=== PATIENT | female | born 1955 | race Caucasian/White ===

== ENCOUNTER 2020-12-28 11:20 | Inpatient (IN) | payer OTHER ==
--- OUTSIDE RECORDS SUMMARY | 2020-12-28 11:24 | XMS REPORT | Continuity of Care Document ---
:1955 Author Organization [facility] t Address [address] [place] [address] Care Team Providers Name Role Phone Robert Primary Care Physician SPRING Attending Clinician Unavailable Spring RUTH Attending Clinician Adams CASTELLON Attending Clinician Unavailable Rey VU, W. Attending Clinician Adamaris Swift MD Attending Clinician Adams Castellon MD Attending Clinician ADAMARIS SWIFT Attending Clinician Unavailable ADAMARIS SWIFT Admitting Clinician Unavailable Payers Payer Name Policy Type Policy Number Effective Date Expiration Date S césar [facility] MEDIC[facility] [id number] 2020 [facility] 00:00:00 [facility]ZZTR[facility]-CARE [id number] 2020 MEDICARE 00:00:00 [facility] OPEN ACCESS [id number] HMO/POS/EPO/PPO - AETNA UHC MEDICAREUHC [id number] 2020 [facility] MEDICARE 00:00:00 [facility] [id number] Problems Condition Condition Condition Status Onset Resolution Last Treating Co mments Source Name Details Category Date Date Treatment Clinician Date Malignant Malignant Problem Active 2018-05 [place] tumor of Tumor of 2-10 da breast Breast [facility]: [facility] DCIS DCIS Disease Active 2017-[address] [facility]ductal 06[facility]02 [facility] - carcinoma carcinoma 00:00: Medi destiny in situ) in situ) 00 Center Mammograph Mammograph Problem Active 2017- M [place] y abnormal y Abnormal 8-14 da 00:00: [facility] Allergies, Adverse Reactions, Alerts This patient has no known allergies or adverse reactions. Family History Family Member Diagnosis Comments Start Date Stop Date Source Natural brother Heart disease [facility] Natural daughter Diabetes [facility] Natural father [facility] Natural mother Heart disease [facility] Social History Social Habit Start Date Stop Date Quantity Comments Source History [facility] - Alcohol Std Drinks Medica l Center History [facility] - Alcohol Binge Medical Rao ter Sex Assigned At [facility] Tobacco use and 2018-04-03 2018-04-03 Never used [facility] kes - exposure 00:00:00 00:00:00 [facility] Alcohol intake 2018-04-03 2018-04-03 [facility]00 non-drinker of Medical Ce nter alcohol (finding) History [facility] 2018-03-27 2018-03-27 [facility] Smoking Status Start Date Stop Date Source Never smoker [facility] edical [place] Medications Ordered Filled Start Stop Current Ordering Indication Dosage Frequency Signature Comments Components Source Medication Medication Date Date Medication? Clinician (SIG) Name Name meloxicam 2020-0 2021- No 15mg QD Take 1 Metho di (Mobic) 15 05-18 tablet (15 st mg tablet 00:00: 05:59 mg total) Ho spita 00 :00 by mouth l daily. multivitami 2017-05 Yes 1{tbl} QD Take [address] n per 06-03 tablet by [facility] - tablet 12:00: mouth Medical 08 daily. Center glucosamine 2017-05 Yes 1{tbl} QD Take [address] -chondroiti 06-03 tablet by Zoë es - n 500-400 12:00: mouth Medical mg tablet 08 daily. [place] cholecalcif 2017-05 Yes QD Take by [facility]3] ben, 06-03 mouth [facility] - vitamin D3, 12:00: daily. Medi destiny (VITAMIN D3 08 Center ORAL) FERROUS 2017-05 Yes 65mg Q.5D Take [address] SULFATE 1-28 by mouth 2 [facility] - ORAL 12:00: (two) Medical 08 times Center daily. docusate 2017-05 Yes 100mg Q.[id number] Take [address] sodium 1- [id number] mg by [facility] - (COLACE) 12:00: 3W mouth 3 Medica l 100 MG 08 (three) Center capsule times a week. calcium 2017-05 Yes Q.5D Take by [facility] carbonate/v 06-03 mouth 2 [facility] - itamin D3 12:00: (two) Medical (CALCIUM 07 times Center 500 + D daily . ORAL) aspirin 81 aspirin 81 No 1 Q1D aspirin 81 [place] mg mg mg da tablet,abimael tablet,abimael tablet,del [facility] yed release yed release ayed a l Take 1 Take 1 release Health tablet tablet Take 1 Outreac every day every day tablet h by oral by oral every day Prog dilan route. route. by oral route. Calcium 600 Calcium 600 No Calcium [place] with with 600 with da Vitamin D3 Vitamin D3 Vitamin D3 [facility] Outre[facility] h Program exemestane exemestane No exemestane [place] 25 mg 25 mg 25 mg da tablet tablet tablet [facility] Outre[facility] Program Glucosamine Glucosamine No Glucosamin [place] da [facility] Outre[facility] Program iron iron No iron [place] [facility] Program meloxicam meloxicam No meloxicam [place] 15 mg 15 mg 15 mg da tablet tablet tablet [facility] Outre[facility] Program valacyclovi valacyclovi No valacyclov [place] r 1 gram r 1 gram ir 1 gram da tablet TAKE tablet TAKE tablet [facility] 2 TABLETS 2 TABLETS TAKE 2 al BY MOUTH BY MOUTH TABLETS BY H ealth TWICE A TWICE A MOUTH Outreac DAY; FOR DAY; FOR TWICE A h ONE DAY FOR ONE DAY FOR DAY; FOR Program ATTACKS ATTACKS ONE DAY FOR ATTACKS Vital Signs Vital Name Observation Time Observation Value Comments Source BP Diastolic 2020-06-11 00:00:00 89 mm[Hg] Lynette cunningham [facility] Out[facility] Height 2020-06-11 00:00:00 67 [in_i] [facility] Program BMI (Body Mass 2020-06-11 00:00:00 26 kg/m2 [place] [employer] [facility] benefits specialist [facility] Index) Health Outreach Program BP Systolic 2020-06-11 00:00:00 143 mm[Hg] [place] [facility] Body Weight 2020-06-11 00:00:00 166 [lb_av] [place] [facility] BP Diastolic 2019-10-27 00:00:00 88 mm[Hg] [place] [facility] Height 2019-10-27 00:00:00 67 [in_i] [place] [facility] BMI (Body Mass 2019-10-27 00:00:00 25.7 kg/m2 [facility] [employer] [facility] specialist [facility] Index) Health Outreach Program BP Systolic 2019-10-27 00:00:00 156 mm[Hg] [place] [facility] Body Weight 2019-10-27 00:00:00 164 [lb_av] [place] [facility] BP Diastolic 2019-09-20 00:00:00 78 mm[Hg] [place] [facility] Height 2019-09-20 00:00:00 67 [in_i] [place] [facility] BMI (Body Mass 2019-09-20 00:00:00 26 kg/m2 [facility] [employer] [facility] [employer] [facility] Index) [facility] Outreach Program BP Systolic 2019-09-20 00:00:00 128 mm[Hg] [place] [facility] Body Weight 2019-09-20 00:00:00 166 [lb_av] [place] [facility] BP Diastolic 2019-04-15 00:00:00 82 mm[Hg] [place] [facility] Height 2019-04-15 00:00:00 67 [in_i] [place] [facility] BMI (Body Mass 2019-04-15 00:00:00 26.3 kg/m2 [facility] [employer] [facility] Index) Health Outreach Program BP Systolic 2019-04-15 00:00:00 146 mm[Hg] [place] [facility] Body Weight 2019-04-15 00:00:00 168 [lb_av] [place] [facility] Body height 2020-05-18 19:15:00 170.2 cm [facility] Body weight 2020-05-18 19:15:00 72.576 kg [facility] BMI 2020-05-18 19:15:00 25.06 kg/m2 [facility] Procedures Procedure Date / Time Performed Performing [facility], AXIAL 2020-06-11 00:00:00 [place] [facility] XR KNEE 4+ VW BILATERAL 2020-05-18 19:25:51 Peter Le [facility] unlisted imaging order 2019-10-27 00:00:00 [place] [facility] Reduction Mammoplasty 2018-03-07 00:00:00 [facility] [employer] [facility] [employer] [facility] Plan of Care Planned Activity Planned Date Details Comments Source Diagnostic Test 2020-06-11 cytology report, thin [place] Pending 00:00:00 prep, smear or [facility] scraping, cervical or Outrea ch Program vaginal [code = cytology report, thin prep, smear or scraping, cervical or vaginal] Diagnostic Test 2020-06-11 CBC w/ auto diff [place] Pending 00:00:00 [code = CBC w/ auto [facility] diff] Outreach Progra m Diagnostic Test 2020-06-11 CMP, serum or plasma [place] [facility] Pending 00:00:00 [code = CMP, serum or [facility] plasma] Outreach Progra m Diagnostic Test 2020-06-11 TSH + free T4, serum [place] [facility] Pending 00:00:00 [code = TSH + free [facility] T4, serum] Outreach Progra m Diagnostic Test 2020-06-11 lipid panel, serum [facility] [employer] [facility] [employer] [facility] Pending 00:00:00 [code = lipid panel, [facility] serum] Outreach Progra m Future Scheduled 2020-05-[address] [facility] - Test 00:00:00 (12+) [code = [facility] DEPRESSION SCREENING (12+)] Future Scheduled 2020-01-[address] [facility] - Test 00:00:00 (#1) [code = Medical Center INFLUENZA VACCINE (#1)] Future Scheduled 2019 PNEUMOCOCCAL 65+ Y[facility] - Test 00:00:00 (1 of 1 - Medical Center [id number] PCV13) [code = PNEUMOCOCCAL 65+ YRS (1 of 1 - [id number] PCV13)] Future Scheduled [address] [facility] - Test 00:00:00 (procedure) [code = Medical Center 08091793] Future Scheduled [address] [facility] - Test 00:00:00 [facility] cervix (procedure) [code = 649648668] Future Scheduled [address] [facility] - Test 00:00:00 malignant [facility] breast (procedure) [code = 683435898] Future Scheduled [address] [facility] - Test 00:00:00 malignant [facility] colon (procedure) [code = 166612225] Future Scheduled COVID-19 [facility]ACCINE (1) [facility] [code = COVID-19 VACCINE (1)] Future Scheduled [facility] (procedure) [code = 801200303] Future Scheduled BREAST CANCER [facility] Test SCREENING [code = BREAST CANCER SCREENING] Future Scheduled [facility]OSCOPY [facility] [code = COLONOSCOPY SCREENING] Future Scheduled SHINGLES VACCINES [facility] Test (#1) [code = SHINGLES VACCINES (#1)] Future Scheduled 65+ [facility] VACCINE (1 of 1 - PPSV23) [code = 65+ PNEUMOCOCCAL VACCINE (1 of 1 - PPSV23)] Future Scheduled INFLUENZA VACCINE [facility] Test [code = INFLUENZA VACCINE] Encounters Start End Encounter Admission Attending Care Care Encounter Source Date/Time Date/Time Type Type Clinicians Facility Department ID 2020-11-16 2020-11-16 Outpatient ROBE LONDONO [facility] [id number] [facility] 10:20:45 14:10:11 BEKA [facility] Medicin e 2020-11-16 2020-11-16 Office CORA LondonoJonna [id number] 10:20:45 14:10:11 Visit eBka Vazquez 350.1.13.21 0.2.7.2.686 [id number] 2020-11-16 2020-11-16 Outpatient [facility] [id number] [facility] 08:38:35 14:06:55 Colleg e of Medicin e 2020-11-16 2020-11-16 Outpatient [facility] [id number] [facility] 08:39:03 08:39:03 Colleg [facility] of Medicin e 2020-06-11 2020-06-11 Marci WALKERADONAY [place] - [id number] M gen 00:00:00 00:00:00 Adamaris Khanh Blackwell, [facility] SHEET METAL FOREMAN: 111 HOP - ADONAY al Leah F N, ELECTRICAL SUPERINTENDENT [facility], Outrea c [facility] [phone] Judy yoo , Ph. 2020-05-20 2020-05-20 Outpatient CANDE, [facility] [id number] [facility] 11:13:18 11:41:51 ERLINDA Colleg e of Medicin e 2020-05-18 2020-05-18 Office Maff[place], 1.2.840.1 [id number] Methodi 12:54:00 13:43:32 Visit Peter Cuevas 84177.1.[address] 3.430.2.7 Hospit a .3.377026 l .8 2020-05-18 2020-05-18 [facility] [id number] [address] [place] [address] 00:00:00 00:00:[address] 2020-05-18 2020-05-18 Travel 1.2.840.1 [id number] [id number] [facility] 00:00:00 00:00:[address] 3.430.2.7 0.2.7.3.698 Ho spita .3.534055 084.8 l .8 2020-05-18 2020-05-18 [facility] [id number] [place] [address] 00:00:00 00:00:[address] 2020-05-10 2020-05-10 Travel 1.2.840.1 1.2.830.406 [id number] [facility] 00:00:00 00:00:[address] 3.430.2.7 0.2.7.3.698 Ho spita .3.063116 084.8 l .8 2019-11-17 2019-11-17 Office Jamison, [facility] 1.2.840.114 [id number] 11:02:54 14:13:28 Visit Brii Vazquez 350.1.13.21 0.2.7.2.686 [id number] 2019-11-17 2019-11-[address] [facility] 1.2.840.114 [id number] 10:35:44 10:55:44 Visit Erlinda Vazquez 350.1.13.21 0.2.7.2.686 [id number] 2019-10-27 2019-10-27 Berto ESTES [place] - [id number] M atagor 00:00:00 00:00:00 Cas Millan MD: [facility] [address] [facility] [address] h , Ph. Program 2019-09-20 2019-09-20 Janny [place]ES [place] - [id number] [place] 00:00:00 00:00:00 Khanh Rivera SHEET METAL FOREMAN: 1700 [facility] [address] h , Ph. Program 2019-06-09 2019-06-[address] [facility] 1.2.840.114 [id number] 12:14:51 15:04:43 Visit Brii Vazquez 350.1.13.21 0.2.7.2.686 [id number] 2019-06-09 2019-06-09 Office Cande, [facility] 1.2.840.114 [id number] 10:50:16 12:15:19 Visit Erlinda R Taylor 350.1.13.21 0.2.7.2.686 [id number] 500 2019-04-15 2019-04-15 Marci ESTES [place] - [id number] M atagor 00:00:00 00:00:00 Adamaris Blackwell, [facility] SHEET METAL FOREMAN: 111 [facility] tiffanie Gagnon, ELECTRICAL SUPERINTENDENT [facility], [facility] [place] [phone] [facility] am , Ph. 2018-12-02 2018-12-02 Office ALICIA Castellon 1.2.840.114 [id number] 11:37:17 13:55:54 Visit Erlinda Lamas AMBULATOR 350.1.13.21 Y 0.2.7.2.686 [id number] 2018-12-02 2018-12-02 Office ALICIA Swift 1.2.840.114 [id number] 11:15:00 11:30:00 Visit Brii Ann AMBULATOR 350.1.13.21 Y 0.2.7.2.686 [id number] Results Test Description Test Time Test Comments Results Result Comments Source Urinalysis macro (dipstick) panel - Urine 2019-10-27 10:34:0 0 Test Item Value Reference Range Interpretation Comme nts Leukocytes (test code = Leukocytes) NEG Nitrite (test code = Nitrite) NEG Urobilinogen (test code = Urobilinogen) 2.0 Protein (test code = Protein) NEG pH (test code = pH) 6.5 Blood (test code = Blood) NEG Specific Hatley (test code = Specific Hatley) 1.020 Ketone (test code = Ketone) 15MG/ML Bilirubin (test code = Bilirubin) NEG Glucose (test code = Glucose) NEG Appearance (test code = Appearance) NEG [facility] occult blood, [id number] 14:40:18 Test Item Value Reference Range Interpretation Comments Occult Blood (test code = Occult negative Blood) [facility] occult blood, [id number] 14:40:18 Test Item Value Reference Range Interpretation Comments Occult Blood (test code = Occult negative Blood) [facility] Outreach ProgramTISSUE [id number] 16:00:00 Surgical Pathology Report Case: [id number] Authorizing Provider: Brii Swift MD Collected: 04/02/2018 1234 Ordering Location: [facility] Received: 04/02/2018 1307 SERVICES Pathologist: Sera Cobian MD Specimens: A) - Breast, Left, LEFT BREAST LUMPECTOMY WITH STITCHES,SHORT=SUPERIOR LONG=LATERAL,WHITE STITCH DEEP B) - Breast, Left, LEFT BREAST ADDITIONAL LATERAL MARGIN ,STITCH AT TRUE MARGIN C) - Breast, Left, LEFT BREAST ANTERIOR SUPERIOR MARGIN ,STITCH AT TRUE MARGIN D) - Breast, Left, LEFT MEDIAL BREAST TISSUE E) - Breast, Left, LEFT LATERAL BREAST TISSUE F) - Breast, Left, LEFT BREAST TISSUE SUPERIOR TO THE NIPPLE G) - Breast, Right, RIGHT LATERAL BREAST TISSUE H) - Breast, Right, RIGHTMEDIAL BREAST TISSUE I) - Breast, Right, RIGHT BREAST TISSUE A. BREAST, LEFT, NEEDLE GUIDED LUMPECTOMY: -MICROINVASIVE CARCINOMA - SEVERAL FOCI - GREATEST MICROSCOPIC DIMENSION: 0.7 MM - NUCLEAR GRADE: 2/3 BY SBR CRITERIA - SURGICAL MARGINS: NEGATIVE - ANTERIOR MARGIN AT 2 MM - ALL OTHER MARGINS AT MORE THAN 10 MM - DUCTAL CARCINOMA IN SITU (DCIS) - THREE RESIDUAL FOCI - MICROSCOPIC DIMENSION OF FOCI: 25, 1.9 AND 1 MM - NUCLEAR GRADE: 2/3 BY SBR CRITERIA - GROWTH PATTERN: SOLID - CENTRAL NECROSIS IDENTIFIED - SURGICAL MARGINS NEGATIVE - ANTERIOR MARGIN AT 1 MM - ALL OTHER MARGINS MORETHAN 10 MM - BIOPSY SITE CHANGES PRESENT ASSOCIATED WITH CLIP - MICROCALCIFICATIONS ASSOCIATED WITH D CISB. BREAST, LEFT, NEW LATERAL MARGIN, RE-EXCISION: - COLUMNAR CELL HYPERPLASIA - COLUMNAR CELL CHANGES - USUAL TYPE DUCTAL HYPERPLASIAC. BREAST, LEFT, NEW ANTERIOR/SUPERIOR MARGIN, RE-EXCISION: - HISTOLOGICALLY UNREMARKABLE BREAST TISSUED. BREAST, LEFT, MEDIAL TISSUE EXCISION: - HISTOLOGICALLY UNREMARKABLE BREAST TISSUEE. BREAST, LEFT, LATERAL TISSUE EXCISION: - HISTOLOGICALLY UNREMARKABLE BREAST TISSUE F. BREAST, LEFT, SUPERIOR TO THE NIPPLE TISSUE EXCISION: - HISTOLOGICALLY UNREMARKABLE BREASTTISSUEG. BREAST, RIGHT, LATERAL TISSUE EXCISION: - HISTOLOGICALLY UNREMARKABLE BREAST TISSUE - SKINAND DERMIS, NO PATHOLOGIC CHANGESH. BREAST, RIGHT, MEDIAL TISSUE EXCISION: - HISTOLOGICALLY UNREMARKABLE BREAST TISSUE - SKIN AND DERMIS, NO PATHOLOGIC CHANGESI. BREAST, RIGHT, TISSUE EXCISION: - HISTOLOGICALLY UNREMARKABLE BREAST TISSUE Signing Pathologist Direct Phone Line: [phone] signed by Sera Cobian MD on 04/05/2018 at 4:00 PMThere is a large area of biopsy site changes measuring 18 x 10 mm. Adjacent to this area are three residual foci of DCIS surrounded by foci of microinvasive carcinoma as highlighted by positive terrazas-cytokeratin immunostain and negative p63 and heavy chain myosin immunostains. The tumor staging is based on the previous biopsy specimen revi ewed in this laboratory ([id number]) and the present specimen. INVASIVE CARCINOMA OF THE BREAST (Breast Invasive - All Specimens)SPECIMEN Procedure: Excision (less than total mastectomy) Specimen Laterality: Left TUMOR Histologic Type: Micro-invasive carcinoma Glandular (Acinar) /Tubular Differentiation: Only microinvasion present (not graded) Nuclear Pleomorphism: Score 2 Mitotic Rate: Only microinvasion present (not graded) Overall Grade: Only microinvasion present (not graded) Tumor Size: Microinvasion only (<= 1 mm) Ductal Carcinoma In Situ (DCIS): Present Size (Extent) of DCIS: Estimated size of DCIS greatest dimension in Millimeters (mm) is at least: 13 Millimeters (mm) Architectural Patterns: Solid Nuclear Grade: Grade II (intermediate) Necrosis: Present, central (expansive "comedo" necrosis) Tumor Extent: Accessory Findings: Lymphovascular Invasion: Not identified Microcalci fications: Present in DCIS Treatment Effect: No known presurgical therapy MARGINS Invasive Carcinoma Margins: Uninvolved by invasive carcinoma Distance from Closest Margin in Millimeters (mm): Cannot be determined: Anterior margin re-excised, probably more than 6 mm Closest Margin: Anterior DCIS Margins: Uninvolved by DCIS Distance of DCIS from Closest Margin in Millimeters (mm): Cannot be determined: Anterior margin re-excised, probably more than 6 mm Closest Margin: Anterior LYMPH NODES Regional Lymph Nodes: No lymph nodes submitted or found PATHOLOGIC STAGE CLASSIFICATION (pTNM, AJCC 8th Edition) TNM Descriptors: Not applicable Primary Tumor (Invasive Carcinoma) (pT): pT1mi Regional Lymph Nodes (pN): Category (pN): pNX A. 74187, 08583, 45326, 80945 X2B. 20925D. 20545I. 23509U. 49502W. 98178Z. 36617Q. 60279X. 85427Dpqlarnoq neoplasm of left female breast, ductal carcinoma in situ of left breastA. Left breast lumpectomy. B. Left breast additional lateral margin. C. Left breast anterior superior margin. D. Left medial breast. E. Left lateral breast. F. Left breast tissue superior to the nipple. G. Right lateral breast tissue. H. Right medial breast tissue. I. Right breast tissue A. Received fresh, for intraop erative consultation and labeled with the patient's information and "left breast lumpectomy with stitches, short superior, long lateral, white deep" is a 32.75 gram, 1.7 x 5.2 x 8 cm lumpectomy specimen. The specimen is serially sectioned into 7 slices from medial to lateral. There is a vasquez-red hemorrhagic and irregular biopsy site measuring 0.9 x 1.1 x 1.0 cm in slices 5-7. The M clip is identified in slice number 6. The biopsy site is 0.3 cm from the superior margin, 0.6 cm from the inferior margin, 1.8 cm from medial margin, 0.6 cm from lateral margin, 3.0 cm from the posterior margin, and 0.2cm from the anterior margin. The uninvolved breast tissue is 95% adipose tissue and 5% fibrous tissue . The specimen is submitted entirely for microscopic examination.Ink Code: Blue superior, yellow anterior, black posterior, and red inferior.Section code: A1- A4, slice 1, medial margin, superficial to deep, A5-A8, slice 2, superficial to deep, A9-A14, slice 3, superficial to deep (A13 and A14 are bisected), A15, slice 4, superficial, A16, slice 4, superficial superior, A17-A18, slice 4, superficialinferior, A19, slice 4, superior, A20, slice 4, inferior, A21-22, slice 4, superior, A23, slice 4, inferior, A24, slice 4 deep next to margin, A25, slice 4 deep, A26, slice 5, superior superficial withbiopsy site, A27, slice 5, inferior superficial, A28, slice 5, superior, A29, slice 5, inferior, A30, slice 5, superior deep, A31, slice 5, inferior deep, A32-A33, slice 6, superior superficial with clip, A34-35, slice 6, inferior superficial, A36-A37, slice 6, remaining from superficial to deep, A38-A42, slice 7, lateral margin, superficial to deep.The following specimens are received in formalin labeled with the patient's information:Specimen B: Labeled "left breast additional lateral margin" consists of an 8 gm segment of adipose tissue measuring 5 x 2 x 1 cm. There is a black suture on one surface designating the new lateral margin. The new margin is inked green. The specimen is serially sectioned from one end to the other showing homogeneous fatty cut surface. No distinct masses or areas of suspicion are seen grossly. The new margin is submitted entirely in B1 through B9.Specimen C: Labeled"left breast anterior superior margin" consists of a 3 gm segment of fatty tissue measuring 2.6 x 1.5 x 0.6 cm. There is a suture on one surface designating the new anterior margin. The new margin is inked yellow. The specimen is serially sectioned from one end to the other showing homogeneous fatty cut surface. No areas of suspicion or masses are identified. The new margin is entirely submitted in C1 through C4.Specimen D: Labeled "left breast medial tissue" consists of a 112 gm segment of fatty tissue with overlying vasquez-pink skin measuring 10.5 x 7 x 2.5 cm. The skin surface is unremarkable. The breast parenchyma shows a predominantly fatty cut surface with no masses seen. Reconciler sections are submitted in D1 through D4.Specimen E: Labeled "left lateral breast tissue" consists of a 198 gm segment of fatty tissue and overlying vasquez-white skin measuring 15.5 x 9 x 3 cm and multiple separate fragments of skin measuring 4.5 x 4 x 2 cm in aggregate. The skin is unremarkable. The breast parenchyma is sectioned showing predominantly fatty cut surface. No masses or areas of suspicion are seen.Reconciler sections are submitted in E1 through E4.Specimen F: Labeled "left breast tissue superior to the nipple" consists of a 146 gm segment of adipose tissue measuring 9 x 9 x 2.5 cm with no skin. The breast tissue is serially sectioned showing predominantly fatty cut surface. No masses are seen. Reconciler sections are submitted in F1 through F4.Specimen G: Labeled "right lateral breast tissue" consists of a 119 gm segment of breast tissue and overlying vasquez-pink skin measuring 11.5 x 8 x 2 cm and multiple separate fragments of terminal ileum skin measuring 7 x 3 x 1 cm in aggregate. The skin is unremarkable. The breast tissue is predominantly fatty cut surface. No masses or areas of suspicion are seen. Reconciler sections are submitted as follows: G1 through G4.Specimen H: Labeled "right medial breast tissue" consists of a 94 gm segment of breast tissue with overlying vasquez-pink skin measuring 8 x 6 x 3 cm. Grossly no suspicious areas are seen. The breast tissue is predominantly fatty. The skin is unremarkable. Reconciler sections are submitted in H1 through H4.Specimen I: Labeled "right breast tissue" consists of a 99 gm segment of breast tissue without skin measuring 12 x6 x 3.4 cm. The breast tissue is predominantly fatty tissue with no masses seen. Reconciler sections are submitted in I1 through I4. CG/ewINTRAOPERATIVE GROSS CONSULTATION:BREAST, LEFT, NEEDLE LOCALIZED LUMPECTOMY: - CLIP X1 IDENTIFIED - CALCIFICATIONS SEEN EXTENDING CLOSE TO LATERAL EDGE - BIOPSYSITE EXTENDING CLOSE TO SUPERIOR AND ANTERIOR MARGIN - REPORTED BY DR. FERREIRA TO DR. SWIFT AT 1:27 PMON 04/02/18`A. - I. Performed.The interpretation of this case included the use of immunohistochemistry or special stains.Immunostains performed:m10Zbmxz chain myosinPan cytokeratin Immunohistochemistrytechnical testing was performed at [facility], Pathology Laboratory where it was developed and its performance characteristics were determined. It has not been cleared or approvedby the U.S. Food and Drug Administration. The FDA has determined that such clearance or approval is not necessary. The test is used for clinical purposes. It should not be regarded as investigational or for research. This laboratory is certified under the Clinical Laboratory Improvement Amendments of 1988 (CLIA-88) as qualified to perform high complexity clinical laboratory testing.MM, DIGITAL, MAMMO, PATHOLOGY, LOCAL, [id number] 10:35:00Reason for exam:->left breast DCISMRN#: [id number] - MM, DIGITAL, MAMMO, PATHOLOGY, LOCAL, LEFTDIGITAL MAMMOGRAPHY GUIDED WIRE LOCALIZATION LEFT BREAST: 04/02/2018PATIENT CONSENT: The procedure, risks and benefits, alternatives were discussed with the patient. Informed consent was obtained. A time-out was performed. A wire localization using digital mammography guidance was performed for the marker clip located in the left breast at 12 o'clock posterior depth. This was described on the previous biopsy report. The skin wasprepped in the usual manner. Local anesthetic was administered to the access site. The localization was approached from the craniocaudal aspect. A wire was inserted adjacent to the marker under digital mammography guidance. IMPRESSION: WIRE LOCALIZATIONWire localization for the marker clip in the left breast at 12 o'clock posterior depth was successful with no apparent post procedure complications. Silvia Carlton M.D. mc/:04/02/2018 10:35:24 Internal Salesperson: Aman SANTOS)(M),Formerly [facility] [id number] BASIC METABOLIC PANEL 2018-04-01 17:31:00 Test Item Value Reference Range Interpretation Comments SODIUM (BEAKER) 142 meq/L 136-145 (test code = 381) POTASSIUM (BEAKER) 4.3 meq/L 3.5-5.1 (test code = 379) CHLORIDE (BEAKER) 110 meq/L 98-107 H (test code = 382) CO2 (BEAKER) (test 28 meq/L 22-29 code = 355) BLOOD UREA NITROGEN 10 mg/dL 7-21 (BEAKER) (test code = 354) CREATININE (BEAKER) 0.68 mg/dL 0.57-1.25 (test code = 358) GLUCOSE RANDOM 94 mg/dL 70-105 (BEAKER) (test code = 652) CALCIUM (BEAKER) 9.9 mg/dL 8.4-10.2 (test code = 697) EGFR (BEAKER) (test 87 mL/min/1.73 ESTIMA GLORIA GFR IS code = 1092) sq m NOT ACCURATE CREATININE CLEARANCE IN PREDICTING GLOMERULAR FILTRATION RATE . ESTIMATED GFR I S NOT APPLICABLE FOR DIALYSIS PATIEN TS. CBC (HEMOGRAM ONLY)2018-04-01 17:15:00 Test Item Value Reference Range Interpretation Comments WHITE BLOOD CELL COUNT (BEAKER) 6.1 K/ L 3.5-10.5 (test code = 775) RED BLOOD CELL COUNT (BEAKER) 4.64 M/ L 3.93-5.22 (test code = 761) HEMOGLOBIN (BEAKER) (test code = 13.7 GM/DL 11.2-15.7 410) HEMATOCRIT (BEAKER) (test code = 41.9 % 34.1-44.9 411) MEAN CORPUSCULAR VOLUME (BEAKER) 90.3 fL 79.4-94.8 (test code = 753) MEAN CORPUSCULAR HEMOGLOBIN 29.5 pg 25.6-32.2 (BEAKER) (test code = 751) MEAN CORPUSCULAR HEMOGLOBIN CONC 32.7 GM/DL 32.2-35.5 (BEAKER) (test code = 752) RED CELL DISTRIBUTION WIDTH 12.5 % 11.7-14.4 (BEAKER) (test code = 412) PLATELET COUNT (BEAKER) (test 206 K/CU MM 150-450 code = 756) MEAN PLATELET VOLUME (BEAKER) 9.4 fL 9.4-12.3 (test code = 754) NUCLEATED RED BLOOD CELLS 0 /100 WBC 0-0 (BEAKER) (test code = 413) OUTSIDE [id number] 12:30:00Surgical Pathology Report Case: [id number] Authorizing Provider: Erlinda Castellon MD Collected: 02/28/2018726 Ordering Location: [facility] Received: 02/28/2018729 Pathologist: Sera Cobian MD Specimen: Breast, Left, Received 10 slides from [employer] label [id number] OUTSIDE CASE DT [id number], LEFT, CALCIFICATIONS 12 O'CLOCK, STEREOTACTIC CORE BIOPSY: - MICROINVASIVE CARCINOMA, SEVERAL FOCI - MICROSCOPIC DIMENSION OF LARGEST FOCUS: 0.8 MM - NUCLEAR GRADE: 2/3 BY SBR CRITERIA - DUCTAL CARCINOMA IN SITU (DCIS) - GREATEST MICROSCOPIC DIMENSION IN CORE: 13 MM - NUCLEAR GRADE: 2/3 BY SBR CRITERIA - GROWTH PATTERN: SOLID - CENTRAL NECROSIS IDENTIFIED - MICROCALCIFICATIONSASSOCIATED WITH DCIS - BIOMARKERS PERFORMED ON SECTION # 1 AT OUTSIDE FACILITY AND RECEIVED FOR REVIEW: - ESTROGEN RECEPTOR: POSITIVE - PROPORTION SCORE: 4/5 - INTENSITY SCORE: 2/3 - SUMMARY: 50% POSITIVE, INTERMEDIATE INTENSITY - PROGESTERONE RECEPTOR: NEGATIVE - PROPORTION SCORE: 0/5 - INTENSITY SCORE: 0/3 - SUMMARY: 0% POSITIVE, NO SIGNAL - HER 2 OVER-EXPRESSION: NEGATIVE (SCORE: 1+) - Ki67: 44% (cut off- 20%) P [id number], microinvasion?Left breast core biopsy 12 oclockReceived for consultation are 10 slides labeled [id number] 1. The slides are accompanied by a pathology report from [employer] having the same number, the name of the patient and dated 01/22/2018.Performed.
[2020-12-28 12:14] LABS: Absolute Lymphocytes (CBC) 0.2 K/uL (0.7-4.9); Basophils % 0.4 % (0-1.3); Hematocrit 35.2 % (36.0-45.0); Lymphocytes % 2.9 % (15.3-44.8); MPV 6.4 fL (7.6-11.3); RBC Red Blood Cell Count 4.21 M/uL (3.86-4.86)
[2020-12-28 12:16] LABS: Protime INR 1.09
--- NOTE | 2020-12-28 12:21 | RAD REPORT ---
EXAM DESCRIPTION: Cesilia Single View12/28/2020 12:15 pm CLINICAL HISTORY: Chest pain COMPARISON: none FINDINGS: [id number] bilateral pulmonary opacities. The heart is normal size IMPRESSION: Mild to moderate bilateral pulmonary opacities probably pneumonia
[2020-12-28] MEDS ORDERED: METHYLPREDNISOLONE 125 MG INJ ONE (12:34)
[2020-12-28 12:46] LABS: ALT/SGPT 105 U/L (12-78); AST/SGOT 67 U/L (15-37); Albumin 3.3 g/dL (3.4-5.0); Alkaline Phosphatase 114 U/L (45-117); BUN Blood Urea Nitrogen 9 mg/dL (7-18); Bicarbonate 27 mmol/L (21-32); Bilirubin Direct 0.2 mg/dL (0-0.2); Bilirubin Total 0.5 mg/dL (0.2-1.0); Ferritin 2297.1 ng/mL (8-388); Glucose Level 126 mg/dL (74-106); Lipase 323 U/L (73-393); Potassium 3.6 mmol/L (3.5-5.1); Protein, Total 7.2 g/dL (6.4-8.2); Sodium Level 134 mmol/L (136-145); Troponin (Emerg Dept Use Only) < 0.02 ng/mL (0.0-0.045)
[2020-12-28 13:24] LABS: Blood Morphology Comment NOT SEEN (NOT SEEN); Platelet Estimate ADEQ; White Blood Cell Scan OK (OK)
--- NOTE | 2020-12-28 13:49 | EDPHYS ---
Physician Documentation [facility] Name: Nicki Carney Age: 65 yrs Sex: Female : 1955 Arrival Date: 12/28/2020 Time: 11:26 Bed 28 Private MD: ED Physician Raza Ross HPI: 12/28 11:52 This 65 yrs old Female presents to ER via Ambulatory with complaints of kb COVID+, Breathing Difficulty. 11:52 The patient or guardian reports cough, that is intermittent, described as moderate, kb with no sputum, difficulty breathing. Onset: The symptoms/episode began/occurred last week. Severity of symptoms: At their worst the symptoms were moderate, in the emergency department the symptoms are unchanged. Modifying factors: The symptoms are alleviated by nothing, the symptoms are aggravated by nothing. Associated signs and symptoms: Pertinent positives: chest pain. The patient has not experienced similar symptoms in the past. The patient has not recently seen a physician. Pt diagnosed with covid on 12/20/20. Daughter started her on ivermectin, zithromax and breathing treatments that day. Pt completed courses of ivermectin and zithromax, still doing nebs TID. Daughter started her on medrol dose pack a few days ago. Pt reported increased shortness of breath and chest pain. Oxygen sat high 80s last night at home, this morning 86%. . Historical: - Allergies: 11:34 No Known Allergies; da3 - PMHx: 11:34 breast cancer; da3 - Immunization history:: Client reports having NOT received the Covid vaccine. - Social history:: Smoking status: Patient denies any tobacco usage or history of. ROS: 11:51 Constitutional: Negative for fever, chills, and weight loss. kb 11:51 Cardiovascular: Positive for chest pain, Negative for edema, orthopnea, palpitations, paroxysmal nocturnal dyspnea. 11:51 Respiratory: Positive for cough, dyspnea on exertion, shortness of breath, Negative for hemoptysis, orthopnea, pleurisy, sputum production, wheezing. 11:51 All other systems are negative. Exam: 11:52 Constitutional: This is a well developed, well nourished patient who is awake, alert, kb and in no acute distress. Head/Face: Normocephalic, atraumatic. ENT: Moist Mucous membranes Cardiovascular: Regular rate and rhythm with a normal S1 and S2. No gallops, murmurs, or rubs. No pulse deficits. Respiratory: Respirations even and unlabored. No increased work of breathing, no retractions or nasal flaring. Skin: Warm, dry with normal turgor. Normal color. MS/ Extremity: Pulses equal, no cyanosis. Neurovascular intact. Full, normal range of motion. Neuro: Awake and alert, GCS 15, oriented to person, place, time, and situation. Moves all extremities. Normal gait. Psych: Awake, alert, with orientation to person, place and time. Behavior, mood, and affect are within normal limits. 13:35 ECG was reviewed by the Attending Physician. Vital Signs: 11:35 BP 122 / 65; Pulse 104; Resp 22; Temp 98.9; Pulse Ox 88% on R/A; da3 12:21 BP 131 / 72; Pulse 85; Resp 30; Temp 98.7(O); Pulse Ox 99% on 3 lpm NC; Weight 72.57 ld1 kg; Height 5 ft. 7 in. (170.18 cm); Pain 0/10; 13:08 BP 131 / 72; Pulse 80; Resp 22; Pulse Ox 99% on 3 lpm NC; ld1 12:21 Body Mass Index 25.06 (72.57 kg, 170.18 cm) ld1 MDM: 11:41 Patient medically screened. 11:51 Data reviewed: vital signs, nurses notes. Data interpreted: Pulse oximetry: on room air kb is 87 %. Interpretation: hypoxia. ED course: Pt oxygen sat 87-91% on room air. 13:34 Counseling: I had a detailed discussion with the patient and/or guardian regarding: the kb historical points, exam findings, and any diagnostic results supporting the discharge/admit diagnosis, lab results, radiology results, the need for further work-up and treatment in the hospital. 12/28 11:42 Order name: BMP 12/28 11:42 Order name: Blood Culture Adult (2) 12/28 11:42 Order name: C-Reactive Protein 12/28 11:42 Order name: CBC with Diff 12/28 11:42 Order name: D-Dimer; Complete Time: 12:39 12/28 11:42 Order name: Ferritin; Complete Time: 13:10 12/28 11:42 Order name: LFT's; Complete Time: 13:10 kb 12/28 11:42 Order name: Lactate; Complete Time: 13:35 kb 12/28 11:42 Order name: Lipase; Complete Time: 13:10 kb 12/28 11:42 Order name: PT-INR; Complete Time: 12:39 kb 12/28 11:42 Order name: Procalcitonin; Complete Time: 13:10 kb 12/28 11:42 Order name: Ptt, Activated; Complete Time: 12:39 kb 12/28 11:42 Order name: Troponin (emerg Dept Use Only); Complete Time: 13:10 kb 12/28 11:42 Order name: Basic Metabolic Panel; Complete Time: 13:10 EDKS 12/28 11:42 Order name: CXR XRAY; Complete Time: 12:39 kb 12/28 11:42 Order name: EKG; Complete Time: 11:43 kb 12/28 11:42 Order name: Cardiac monitoring; Complete Time: 12:09 kb 12/28 11:42 Order name: Droplet/Contact Precautions; Complete Time: 12:09 kb 12/28 11:42 Order name: Blood Culture EDKS 12/28 11:42 Order name: C-Reactive Protein; Complete Time: 13:10 EDKS 12/28 11:42 Order name: CBC with Automated Diff; Complete Time: 13:24 EDKS 12/28 13:24 Order name: CBC Smear Scan; Complete Time: 13:24 EDKS 12/28 15:46 Order name: Basic Metabolic Panel [facility] 12/28 15:46 Order name: Basic Metabolic Panel [facility] 12/28 15:46 Order name: Heart Healthy EDKS 12/28 15:46 Order name: CBC with Automated Diff [facility] 12/28 15:46 Order name: CBC with Automated Diff [facility] 12/28 15:47 Order name: Urinalysis ED[facility] 12/28 16:01 Order name: Respiratory Therapy Consult ED[facility] 12/28 11:42 Order name: EKG - Nurse/Tech; Complete Time: 12:25 kb 12/28 11:42 Order name: IV Start; Complete Time: 11:57 kb 12/28 11:42 Order name: Labs collected and sent; Complete Time: 11:58 kb 12/28 11:42 Order name: O2 Per Protocol; Complete Time: 11:58 kb 12/28 11:42 Order name: O2 Sat Monitoring; Complete Time: 11:58 kb EC:35 Rate is 82 beats/min. Rhythm is regular. QRS [place] is Normal. [place] interval is normal at kb 136 msec. QRS interval is normal at 88 msec. QT interval is normal at 368 msec. Administered Medications: 12:21 Drug: SOLU-Medrol (methylPrednisoLONE) 125 mg Route: IVP; Site: left antecubital; ld1 12:25 Follow up: Response: No adverse reaction ld1 Disposition Summary: 12/28/20 13:48 Hospitalization Ordered Hospitalization Status: Inpatient Admission kb Provider: Manny Hewitt Condition: Stable kb Problem: new kb Symptoms: are unchanged kb Bed/Room Type: Standard kb Location: Telemetry/MedSurg (Inpatient)(12/28/20 23:34) cg Room Assignment: [facility](12/28/20 23:34) cg Diagnosis - Coronavirus infection, unspecified kb - Hypoxia kb - Viral pneumonia, unspecified kb Forms: - Medication Reconciliation Form kb - SBAR form kb Addendum: 12/30/2020 18:55 Co-signature as Attending Physician, Raza Ross MD I agree with the assessment and r n plan of care. Attestation: The patient's history, exam findings, diagnostics, and a summary of any interventions or procedures was reviewed in detail with Julienne ORONA. Signatures: Dispatcher [employer] Julienne Garcia FNP-C FNP-CkRaza Villeda MD MD rn Smirch, Shelby, RN RN Christy Suarez RN RN Rachele Hoang RN RN ld1 Moshe Olivera RN RN da3 Corrections: (The following items were deleted from the chart) 12/28 11:51 11:51 ED course: Pt oxygen sat 87-90% on room air. kb kb 16:17 13:48 Telemetry/MedSurg (Inpatient) kb ss 16:17 13:48 kb ss 23:34 16:17 [facility] ER HOLD ss 23:34 16:17 ERHOLD- ss cg
--- NOTE | 2020-12-28 13:49 | ER ---
Nurse's Notes [facility] Name: Nicki Carney Age: 65 yrs Sex: Female : 1955 Arrival Date: 12/28/2020 Time: 11:26 Bed 28 Private MD: Diagnosis: Coronavirus infection, unspecified;Hypoxia;Viral pneumonia, unspecified Presentation: 12/28 11:33 Chief complaint: Patient states: Short of breath. Coronavirus screen: Client presents da3 with at least one sign or symptom that may indicate coronavirus-19. Ebola Screen: No symptoms or risks identified at this time. Risk Assessment: Do you want to hurt yourself or someone else? Patient reports no desire to harm self or others. 11:33 Method Of Arrival: Ambulatory da3 11:33 Acuity: [place] 3 da3 23:56 Initial Sepsis Screen: Does the patient meet any 2 criteria? No. Patient's initial ld1 sepsis screen is negative. Does the patient have a suspected source of infection? No. Patient's initial sepsis screen is negative. Onset of symptoms was December 22, 2020. Triage Assessment: 11:34 General: Appears in no apparent distress. Behavior is calm, cooperative. da3 23:56 Respiratory: Onset: The symptoms/episode began/occurred yesterday, ld1 Historical: - Allergies: 11:34 No Known Allergies; da3 - PMHx: 11:34 breast cancer; da3 - Immunization history:: Client reports having NOT received the Covid vaccine. - Social history:: Smoking status: Patient denies any tobacco usage or history of. Screenin:21 Abuse screen: Denies threats or abuse. Denies injuries from another. Nutritional ld1 screening: No deficits noted. Tuberculosis screening: No symptoms or risk factors identified. Fall Risk None identified. Assessment: 12:21 General: Appears in no apparent distress. comfortable, Behavior is calm, cooperative, ld1 appropriate for age. Pain: Denies pain. Neuro: Level of Consciousness is awake, alert, obeys commands, Oriented to person, place, time, situation, Appropriate for age. Cardiovascular: Capillary refill < 3 seconds Patient's skin is warm and dry. Rhythm is regular. Respiratory: Reports shortness of breath. Respiratory: Reports SOB beginning yesterday 12/27/2020. GI: Abdomen is flat, non-distended. : No signs and/or symptoms were reported regarding the genitourinary system. EENT: No signs and/or symptoms were reported regarding the EENT system. Derm: No signs and/or symptoms reported regarding the dermatologic system. Musculoskeletal: No signs and/or symptoms reported regarding the musculoskeletal system. 12:21 Respiratory: Airway is patent Respiratory effort is even, Respiratory pattern is ld1 regular, symmetrical. 12:21 Respiratory: Breath sounds are clear bilaterally. ld1 13:08 Reassessment: Patient appears in no apparent distress at this time. Patient and/or ld1 family updated on plan of care and expected duration. Pain level reassessed. Laying in bed waiting on results. Denies concerns at this time. Vital Signs: 11:35 BP 122 / 65; Pulse 104; Resp 22; Temp 98.9; Pulse Ox 88% on R/A; da3 12:21 BP 131 / 72; Pulse 85; Resp 30; Temp 98.7(O); Pulse Ox 99% on 3 lpm NC; Weight 72.57 ld1 kg; Height 5 ft. 7 in. (170.18 cm); Pain 0/10; 13:08 BP 131 / 72; Pulse 80; Resp 22; Pulse Ox 99% on 3 lpm NC; ld1 12:21 Body Mass Index 25.06 (72.57 kg, 170.18 cm) ld1 ED Course: 11:26 Patient arrived in ED. mr 11:33 Triage completed. da3 11:41 Julienne Alex [facility]-C [facility] kb 11:41 Raza Ross MD is Attending Physician. kb 11:57 Inserted saline lock: 20 gauge in left antecubital area, using aseptic technique. Blood mt collected. 12:14 CXR XRAY In Process Unspecified. EDMS 12:21 No provider procedures requiring assistance completed. ld1 12:21 Patient has correct armband on for positive identification. Placed in gown. Bed in low ld1 position. Call light in reach. Side rails up X2. monitor worker on. Pulse ox on. NIBP on. Door closed. Warm blanket given. 12:58 Rachele Hoang, ARMINDA is Primary Nurse. ld1 13:48 Manny Hewitt is Hospitalizing Provider. kb 23:56 Patient admitted, IV remains in place. intact, bleeding controlled, No redness/swelling ld1 at site. 23:57 Arm band placed on right wrist. ld1 Administered Medications: 12:21 Drug: SOLU-Medrol (methylPrednisoLONE) 125 mg Route: IVP; Site: left antecubital; ld1 12:25 Follow up: Response: No adverse reaction ld1 Outcome: 13:48 Decision to Hospitalize by Provider. kb 23:55 Admitted to Med/surg accompanied by tech, via wheelchair, room 408, with chart, Report ld1 called to ARMINDA Luna 23:55 Condition: stable 23:55 Instructed on the need for admit. 23:57 Patient left the ED. ld1 Signatures: Dispatcher [employer] EDMS Julienne Alex, [employer]-Janny Rivera, [facility] Rachele Hoang, RN RN ld1 Moshe Olivera, RN RN da3 Corrections: (The following items were deleted from the chart) 12:24 12:21 Respiratory: Airway is patent Respiratory effort is even, unlabored, Respiratory ld1 pattern is regular, symmetrical, Breath sounds are clear bilaterally. ld1 12:24 12:24 Respiratory: Breath sounds are clear bilaterally. ld1 ld1
[2020-12-28] MEDS ORDERED: ACETAMINOPHEN 500 MG TAB PO PRN (15:42)
[2020-12-28] MEDS ORDERED: ONDANSETRON 4 MG/2 ML VIAL IV PRN (15:42)
[2020-12-28] MEDS ORDERED: LABETALOL 20 MG/4ML SYRINGE IV PRN (15:46)
[2020-12-28] MEDS ORDERED: HYDROCODONE/APAP 5/325 MG TAB PO PRN (15:47)
--- NOTE | 2020-12-28 16:01 | P.HP ---
Certification for Inpatient Patient admitted to: Inpatient With expected LOS: >2 Midnights Patient will require the following post-hospital care: None Practitioner: I am a practitioner with admitting privileges, knowledge of patient current condition, hospital course, and medical plan of care. Services: Services provided to patient in accordance with Admission requirements found in Title 42 Section 412.3 of the Code of Federal Regulations Patient History Date of Service: 12/29/20 Reason for admission: SOB History of Present Illness: Patient is a 65-year-old female with a past medical history significant for breast Cancer s who presents with complaint of shortness of breath that has become worse in the last couple of days. Patient reported that she was tested + for COVID-19 infection on 12/17/2020. Patient reports associated signs and symptoms of cough, chest tightness, weakness and fatigue. Patient reported that she was prescribed antibiotics, and neb treatments licha PCP but has not experienced any improvement in symptoms. Patient denies any other signs or symptoms. Symptoms are aggravated or relieved by nothing. Patient decided to present to the hospital due to worsening symptoms. Allergies No Known Allergies Allergy (Unverified 12/28/20 14:36) Home medications list reviewed: No - Past Medical/Surgical History -: Breast Cancer Past Surgical History: Reviewed- Non-Contributory - Family History Family History: Reviewed- Non-Contributory (Reviewed and patient unaware of any family history) - Social History Smoking Status: Never smoker Alcohol use: No CD- Drugs: No Caffeine use: Yes Place of Residence: Home Review of Systems General: Weakness, Malaise, Other (fatigue ) Eyes: Unremarkable ENT: Unremarkable Respiratory: Cough, Shortness of Breath, SOB with Excertion Cardiovascular: Unremarkable Gastrointestinal: Unremarkable Genitourinary: Unremarkable Musculoskeletal: Unremarkable Integumentary: Unremarkable Neurological: Unremarkable Lymphatics: Unremarkable Physical Examination - Physical Exam General: Alert, Oriented x3, Mild distress HEENT: Atraumatic, PERRLA, Mucous membr. moist/pink, EOMI, Sclerae nonicteric Neck: Supple, 2+ carotid pulse no bruit, No LAD, Without JVD or thyroid abnormal ity Respiratory: Diminished Cardiovascular: No edema, Regular rate/rhythm, Normal S1 S2 Capillary refill: <2 Seconds Gastrointestinal: Normal bowel sounds, No tenderness Musculoskeletal: No clubbing, No swelling, No tenderness Integumentary: No rashes Neurological: Normal gait, Normal speech, Normal tone, Normal affect Lymphatics: No axilla or inguinal lymphadenopathy External genitalia: Deferred Rectal: Deferred - Studies Laboratory Data (last 24 hrs) 12/28/20 11:54: PT 12.5, INR 1.09, APTT 29.6 12/28/20 11:54: WBC 7.20, Hgb 11.9 L, Hct 35.2 L, Plt Count 258 12/28/20 11:54: Sodium 134 L, Potassium 3.6, BUN 9, Creatinine 0.62, Glucose 126 H, Total Bilirubin 0.5, AST 67 H, ALT 105 H, Alkaline Phosphatase 114, Lipase 323 Assessment and Plan - Plan --COVID-19 pneumonia. Sound Designer consulted. Patient placed on steroids, oral supplements and O2 therapy. Patient placed on ivermectin per recommendation of analysis reporting developer. Further management per analysis reporting developer. --COVID-19 pneumonia. Continue current treatment regimen. Continue droplet, contact and airborne precautions. --Acute respiratory failure with hypoxia. Continue current treatment regimen. Patient on O2 therapy. Further management per analysis reporting developer. --Hx of breast Cancer. Status unknown. Continue supportive care. --Anemia of chronic disease. H&H stable. We will continue to monitor hemoglobin and transfuse if less than 7.0. --DVT prophylaxis with Lovenox subQ I have had discussion about advanced directives with the patient and /or family during this hospital admission. Addressed code status and /or goals of care. Spent more than 15 minutes. Case discussed withpatient and nurse. Discharge disposition. Continue hospital stay. Discharge Plan: Home Plan to discharge in: 48 Hours - Advance Directives Does patient have a Living Will: No Does patient have a Durable POA for Healthcare: No - Code Status/Comfort Care Code Status Assessed: Yes Code Status: Full Code Physician Review: Patient Assessed, Agree with Above Assessment and Plan Critical Care: No
[2020-12-28 16:31] VITALS: BMI 25.8
[2020-12-28] MEDS ORDERED: ASCORBIC ACID 500 MG TABLET ONE ×3 (16:58→20:42)
[2020-12-28] MEDS: ENOXAPARIN 40 MG/0.4 ML SQ SCH (16:58)
[2020-12-28] MEDS: ASCORBIC ACID 500 MG TABLET PO SCH ×2 (16:58→21:00)
[2020-12-28] MEDS ORDERED: ENOXAPARIN 40 MG/0.4 ML SQ ONE (16:59)
[2020-12-28] MEDS: IVERMECTIN 3 MG TABLET PO SCH (17:00)
[2020-12-28] MEDS ORDERED: MELATONIN 5 MG TABLET PO ONE (20:42)
[2020-12-28] MEDS ORDERED: FAMOTIDINE 20 MG/2 ML VIAL IV ONE (20:42)
[2020-12-28] MEDS ORDERED: METHYLPREDNISOLONE 40 MG INJ ONE (20:42)
[2020-12-28] MEDS: METHYLPREDNISOLONE 40 MG INJ IV SCH (21:00)
[2020-12-28] MEDS: MELATONIN 5 MG TABLET PO SCH (21:00)
[2020-12-28] MEDS: THIAMINE HCL 100 MG TABLET PO SCH (21:00)
[2020-12-28] MEDS: FAMOTIDINE 20 MG TAB PO SCH (21:00)
[2020-12-28] MEDS ORDERED: BENZONATATE 100 MG CAP PO PRN (21:44)
[2020-12-28] MEDS ORDERED: BENZONATATE 100 MG CAP PO ONE (22:14)
[2020-12-29 05:57] LABS: Absolute Lymphocytes (CBC) 0.4 K/uL (0.7-4.9); Basophils % 0.1 % (0-1.3); Hematocrit 37.2 % (36.0-45.0); Lymphocytes % 4.5 % (15.3-44.8); MPV 6.6 fL (7.6-11.3); RBC Red Blood Cell Count 4.43 M/uL (3.86-4.86)
[2020-12-29 06:05] LABS: BUN Blood Urea Nitrogen 13 mg/dL (7-18); Bicarbonate 28 mmol/L (21-32); Glucose Level 139 mg/dL (74-106); Potassium 3.6 mmol/L (3.5-5.1); Sodium Level 138 mmol/L (136-145)
[2020-12-29] MEDS: ENOXAPARIN 40 MG/0.4 ML SQ SCH (08:18)
[2020-12-29] MEDS: FAMOTIDINE 20 MG TAB PO SCH ×2 (08:18→20:42)
[2020-12-29] MEDS: METHYLPREDNISOLONE 40 MG INJ IV SCH ×2 (08:18→20:43)
[2020-12-29] MEDS: ASPIRIN 81 MG CHEWABLE TABLET PO SCH (08:18)
[2020-12-29] MEDS: VITAMIN D 1000 UNIT TAB PO SCH (08:18)
[2020-12-29] MEDS: THIAMINE HCL 100 MG TABLET PO SCH ×2 (08:19→20:42)
[2020-12-29] MEDS: ZINC SULFATE 220 MG CAP PO SCH (08:19)
[2020-12-29] MEDS: ASCORBIC ACID 500 MG TABLET PO SCH ×4 (08:19→20:42)
[2020-12-29 08:40] LABS: Ferritin 2224.4 ng/mL (8-388)
[2020-12-29] MEDS ORDERED: POTASSIUM CL SA 10 MEQ TAB PO ONE (09:00)
[2020-12-29] MEDS ORDERED: ALBUTEROL INHALER 60 PUFF/8 GM IH PRN (10:30)
--- NOTE | 2020-12-29 11:16 | P.CNS ---
Date of Consult: 12/29/20 Chief Complaint: SOB History of Present Illness: age 65 Aw COVID penumonia. Hypoxic Allergies No Known Allergies Allergy (Unverified 12/28/20 14:36) Home Medications: Exemestane [Aromasin] 25 mg PO DAILY 12/29/20 - Past Medical/Surgical History -: Breast Cancer - Social History Alcohol use: No CD- Drugs: No Caffeine use: Yes Place of Residence: Home Review of Systems General: Weakness Respiratory: Shortness of Breath Physical Examination Temp Pulse Resp BP Pulse Ox 99.4 F 78 20 106/68 90 L 12/29/20 08:00 12/29/20 08:00 12/29/20 08:00 12/29/20 08:00 12/29/20 08:00 General: Alert, Oriented x3, Cooperative, Mild distress Laboratory Data (last 24 hrs) 12/28/20 11:54: PT 12.5, INR 1.09, APTT 29.6 12/28/20 11:54: WBC 7.20, Hgb 11.9 L, Hct 35.2 L, Plt Count 258 12/28/20 11:54: Sodium 134 L, Potassium 3.6, BUN 9, Creatinine 0.62, Glucose 126 H, Total Bilirubin 0.5, AST 67 H, ALT 105 H, Alkaline Phosphatase 114, Lipase 323 - Problems (1) Pneumonia due to COVID-19 virus Current Visit: Yes Status: Acute Plan: age 65 Hxof breast cancer AW COVID penumonia/ on [place] O2/ labs reviewed. does not qualify for Barctinib
[2020-12-29] MEDS ORDERED: BARICITINIB 2 MG TABLET PO SCH (12:00)
[2020-12-29] MEDS: DULERA 100/5 (MOMETASONE/FORMOTEROL) INHALER IH SCH ×2 (12:27→20:43)
[2020-12-29] MEDS ORDERED: REMDESIVIR (EUA) 200 MG in NA CHLORIDE 0.9% 250 ML IV ONE (12:30)
--- NOTE | 2020-12-29 15:40 | EKG ---
Test Date: 2020-12-28 Test Time: 12:20:09 Grinder Dresser: CRISTINA MEASUREMENT RESULTS: Intervals: Rate: 82 GA: 136 QRSD: 88 QT: 368 QTc: 429 [place]: P: 58 GA: 136 QRS: 28 T: 39 INTERPRETIVE STATEMENTS: Normal sinus rhythm Right atrial enlargement Borderline ECG No previous ECG available for comparison Electronically Signed On 12-29-20 15:37:12 CDT by Cristian Lucio
[2020-12-29] MEDS: MELATONIN 5 MG TABLET PO SCH (20:41)
[2020-12-30 06:51] LABS: ALT/SGPT 93 U/L (12-78); AST/SGOT 56 U/L (15-37); Albumin 2.7 g/dL (3.4-5.0); Alkaline Phosphatase 121 U/L (45-117); BUN Blood Urea Nitrogen 17 mg/dL (7-18); Bicarbonate 29 mmol/L (21-32); Bilirubin Total 0.4 mg/dL (0.2-1.0); Glucose Level 151 mg/dL (74-106); Potassium 4.1 mmol/L (3.5-5.1); Protein, Total 6.5 g/dL (6.4-8.2); Sodium Level 139 mmol/L (136-145)
[2020-12-30 07:46] LABS: C-Reactive Protein 71.5 mg/L (<3.00); Ferritin 2451.6 ng/mL (8-388)
[2020-12-30] MEDS: METHYLPREDNISOLONE 40 MG INJ IV SCH ×2 (07:46→20:01)
[2020-12-30] MEDS: THIAMINE HCL 100 MG TABLET PO SCH ×2 (07:46→20:00)
[2020-12-30] MEDS: ASPIRIN 81 MG CHEWABLE TABLET PO SCH (07:47)
[2020-12-30] MEDS: VITAMIN D 1000 UNIT TAB PO SCH (07:47)
[2020-12-30] MEDS: ZINC SULFATE 220 MG CAP PO SCH (07:47)
[2020-12-30] MEDS: ENOXAPARIN 40 MG/0.4 ML SQ SCH (07:47)
[2020-12-30] MEDS: FAMOTIDINE 20 MG TAB PO SCH ×2 (07:47→20:00)
[2020-12-30] MEDS: ASCORBIC ACID 500 MG TABLET PO SCH ×4 (07:47→20:00)
[2020-12-30] MEDS: DULERA 100/5 (MOMETASONE/FORMOTEROL) INHALER IH SCH ×2 (07:48→20:01)
[2020-12-30] MEDS: REMDESIVIR (EUA) 100 MG in NA CHLORIDE 0.9% 250 ML IV SCH (09:00)
[2020-12-30] MEDS ORDERED: IVERMECTIN 3 MG TABLET PO SCH (09:00)
[2020-12-30] MEDS: IVERMECTIN 3 MG TABLET PO SCH (16:25)
[2020-12-30] MEDS ORDERED: IVERMECTIN 3 MG TABLET PO ONE ×2 (17:00)
[2020-12-30] MEDS: MELATONIN 5 MG TABLET PO SCH (20:01)
[2020-12-30 23:40] VITALS: O2SAT 97
[2020-12-31 06:07] LABS: ALT/SGPT 100 U/L (12-78); AST/SGOT 50 U/L (15-37); Albumin 2.7 g/dL (3.4-5.0); Alkaline Phosphatase 92 U/L (45-117); BUN Blood Urea Nitrogen 16 mg/dL (7-18); Bicarbonate 29 mmol/L (21-32); Bilirubin Total 0.5 mg/dL (0.2-1.0); Glucose Level 137 mg/dL (74-106); Potassium 4.3 mmol/L (3.5-5.1); Protein, Total 6.3 g/dL (6.4-8.2); Sodium Level 139 mmol/L (136-145)
[2020-12-31] MEDS: ENOXAPARIN 40 MG/0.4 ML SQ SCH (08:33)
[2020-12-31] MEDS: THIAMINE HCL 100 MG TABLET PO SCH (08:34)
[2020-12-31] MEDS: VITAMIN D 1000 UNIT TAB PO SCH (08:34)
[2020-12-31] MEDS: METHYLPREDNISOLONE 40 MG INJ IV SCH (08:34)
[2020-12-31] MEDS: FAMOTIDINE 20 MG TAB PO SCH (08:35)
[2020-12-31] MEDS: ASCORBIC ACID 500 MG TABLET PO SCH ×2 (08:35→12:30)
[2020-12-31] MEDS: ZINC SULFATE 220 MG CAP PO SCH (08:35)
[2020-12-31] MEDS: ASPIRIN 81 MG CHEWABLE TABLET PO SCH (08:35)
[2020-12-31] MEDS: DULERA 100/5 (MOMETASONE/FORMOTEROL) INHALER IH SCH (08:36)
[2020-12-31] MEDS: REMDESIVIR (EUA) 100 MG in NA CHLORIDE 0.9% 250 ML IV SCH (09:29)
[2020-12-31 10:06] LABS: C-Reactive Protein 32.1 mg/L (<3.00); Ferritin 2322.2 ng/mL (8-388)
[2020-12-31 12:50] VITALS: BP 147/79; TEMP 98.4
--- NOTE | 2021-01-04 06:05 | P.PN ---
Subjective Date of Service: 12/29/20 Subjective: No new changes, No C/O voiced Patient is feeling well. She still gets hypoxic and dropped her O2 sats whenever she ambulates. Continue remdesivir for 3 days. Review of Systems 10-point ROS is otherwise unremarkable Physical Examination - Vital Signs Temperature: 98.4 F Blood Pressure: 147/79 Pulse: 79 Respirations: 20 Pulse Ox (%): 90 - Physical Exam General: Alert, In no apparent distress, Oriented x3 HEENT: Atraumatic, PERRLA, EOMI Neck: Supple, JVD not distended Respiratory: Clear to auscultation bilaterally, Normal air movement Cardiovascular: Regular rate/rhythm, Normal S1 S2 Gastrointestinal: Normal bowel sounds, Soft and benign, Non-distended, No tenderness Musculoskeletal: No clubbing, No swelling, No tenderness Integumentary: No rashes Neurological: Normal speech, Normal tone, Normal affect Lymphatics: No axilla or inguinal lymphadenopathy - Studies Medications List Reviewed: Yes Assessment & Plan - Problems (Diagnosis) (1) Pneumonia due to COVID-19 virus Status: Acute - Plan Plan: 1. IV steroids and IV antiviral therapy; prone positioning 2. Repeat labs 3. Cough medication as needed 4. Respiratory isolation including droplet precautions 5. Albuterol inhaler therapy as needed 6. Anticoagulation 7. Repeat chest x-ray as needed 8. Monitor volume status 9. O2 per protocol 10. GI prophylaxis Discharge Plan: Home Plan to discharge in: Greater than 2 days - Advance Directives Does patient have a Living Will: No Does patient have a Durable POA for Healthcare: No - Code Status/Comfort Care Code Status: Full Code Physician Review: Patient Assessed, Agree with Above Assessment and Plan Critical Care: No Time Spent Managing PTS Care (In Minutes): 35
--- NOTE | 2021-01-04 06:07 | P.PN ---
Date of Service: 12/30/20 Subjective Patient is continuing to do well. Her symptoms are improving. Review of Systems 10-point ROS is otherwise unremarkable Physical Examination - Vital Signs Reviewed - Physical Exam General: Alert, In no apparent distress, Oriented x3 Respiratory: Clear to auscultation bilaterally, Normal air movement Cardiovascular: Regular rate/rhythm, Normal S1 S2 Gastrointestinal: Normal bowel sounds, Soft and benign, Non-distended, No tenderness Musculoskeletal: No clubbing, No swelling, No tenderness Neurological: Normal speech, Normal tone, Normal affect Assessment & Plan - Problems (Diagnosis) (1) Pneumonia due to COVID-19 virus Status: Acute - Plan Plan: 1. IV steroids and IV antiviral therapy; prone positioning 2. Repeat labs 3. Cough medication as needed 4. Respiratory isolation including droplet precautions 5. Albuterol inhaler therapy as needed 6. Anticoagulation 7. Repeat chest x-ray as needed 8. Monitor volume status 9. O2 per protocol 10. GI prophylaxis
--- NOTE | 2021-01-04 06:08 | P.DS ---
Discharge Date: 12/31/20 Disposition: ROUTINE DISCHARGE Discharge Condition: GOOD Reason for Admission: SOB - Problems (1) Pneumonia due to COVID-19 virus Status: Acute Brief History of Present Illness: Patient is a 65-year-old female who came into the hospital with COVID-19 Pneumonia. Patient's hypoxic. Patient was started on O2. She was given IV steroids. Patient's clinical symptoms are improving. Patient also with IV remdesivir. Hospital Course: Patient has done well. Patient clinical symptoms have improved.We have arranged for home oxygen. Patient will continue tapering dose of steroids. At this time, patient is stable for discharge home. Vital Signs/Physical Exam: Temp Pulse Resp BP Pulse Ox 98.4 F 79 20 147/79 H 90 L 01/04/21 06:05 01/04/21 06:05 01/04/21 06:05 01/04/21 06:05 01/04/21 06:05 General: Alert, In no apparent distress, Oriented x3 Laboratory Data at Discharge: WBC 8.00 K/uL (4.3-10.9) 12/29/20 05:00 Hgb 12.3 g/dL (12.0-15.0) 12/29/20 05:00 Hct 37.2 % (36.0-45.0) 12/29/20 05:00 Plt Count 279 K/uL (152-406) 12/29/20 05:00 PT 12.5 SECONDS (9.5-12.5) 12/28/20 11:54 INR 1.09 12/28/20 11:54 APTT 29.6 SECONDS (24.3-36.9) 12/28/20 11:54 Sodium 139 mmol/L (136-145) 12/31/20 05:29 Potassium 4.3 mmol/L (3.5-5.1) 12/31/20 05:29 BUN 16 mg/dL (7-18) 12/31/20 05:29 Creatinine 0.49 mg/dL (0.55-1.3) L 12/31/20 05:29 Glucose 137 mg/dL (74-106) H 12/31/20 05:29 Total Bilirubin 0.5 mg/dL (0.2-1.0) 12/31/20 05:29 AST 50 U/L (15-37) H 12/31/20 05:29 ALT 100 U/L (12-78) H 12/31/20 05:29 Alkaline Phosphatase 92 U/L (45-117) 12/31/20 05:29 Lipase 323 U/L (73-393) 12/28/20 11:54 Home Medications: Exemestane [Aromasin] 25 mg PO DAILY 12/29/20 Albuterol Inhaler [Ventolin Inhaler*] 2 puff IH Q6H PRN #0 hfa.aer.ad 12/31/20 Apixaban [Eliquis] 5 mg PO BID #30 tablet 12/31/20 Ascorbic Acid [Vitamin C*] 500 mg PO QID #60 tablet 12/31/20 Benzonatate [Tessalon Perle] 200 mg PO TID #30 cap 12/31/20 Cholecalciferol (Vitamin D3) [Vitamin D 1000 Iu Tab*] 4,000 unit PO DAILY #60 tab 12/31/20 Mometasone/Formoterol [Dulera 100 Mcg/5 Mcg Inhaler] 2 puff IH BID inhaler 12/31/20 Thiamine HCl [Vitamin B-1*] 100 mg PO BID #60 tablet 12/31/20 Zinc Sulfate [Zinc Sulfate*] 220 mg PO DAILY #30 cap 12/31/20 predniSONE [Prednisone*] 20 mg PO BID #14 tab 12/31/20 New Medications: Apixaban [Eliquis] 5 mg PO BID #30 tablet predniSONE [Prednisone*] 20 mg PO BID #14 tab Benzonatate [Tessalon Perle] 200 mg PO TID #30 cap Thiamine HCl [Vitamin B-1*] 100 mg PO BID #60 tablet Ascorbic Acid [Vitamin C*] 500 mg PO QID #60 tablet Cholecalciferol (Vitamin D3) [Vitamin D 1000 Iu Tab*] 4,000 unit PO DAILY #60 tab Zinc Sulfate [Zinc Sulfate*] 220 mg PO DAILY #30 cap Physician Discharge Instructions: OK TO DC IV AND DC HOME FOLLOW-UP WITH PRIMARY CARE PROVIDER IN 1-2 WEEKS RETURN TO THE ER IF symptoms worsen CALL or TEXT DR. ABREU AT [phone] IF ANY QUESTIONS REGARDING HOSPITAL STAY. PLEASE CALL THE FLOOR AT [phone] IF ANY MEDICATION OR NURSING QUESTIONS. Diet: AHA Activity: Fall precautions Followup: Ty Reza MD [ACTIVE - CAN ADMIT] - (Call to schedule appointment) Time spent managing pt's care (in minutes): 35
== END 2020-12-31 13:10 | disposition home or self-care (01) | DRG 177 ==
LOC: ER 11:20 → ERHOLD 15:39 → 4TH 12-29 00:17
PROVIDERS: ADMIT Internal Medicine; ATTEND Internal Medicine
DX: U07.1 COVID-19 (principal); J12.82 Pneumonia due to coronavirus disease 2019; J96.01 Acute respiratory failure with hypoxia; Z85.3 Personal history of malignant neoplasm of breast; D63.8 Anemia in other chronic diseases classified elsewhere
CPT/HCPCS: 36415; 71045; 80048; 80053; 80076; 82728; 83605; 83690; 84145; 84484; 85025; 85379; 85610; 85730; 86140; 87040; 93005; 94010; 96374; 99285; J1650; J2920; J2930; J7050; J7606